=== PATIENT | male | born 1995 | race Two or more races ===

== ENCOUNTER 2023-10-01 14:33 | Emergency (ER) | payer SELFPAY ==
[~2023-10-01] VITALS: Ht 177.8 cm; Wt 79.3 kg
[~2023-10-01 14:33] MED LIST: AZIT-43
[2023-10-01 16:40] VITALS: BP 121/68; PULSE 100; RESP 17; TEMP 98.3; O2SAT 97
[2023-10-01] MEDS: HYDROcodone-ACET 10/325MG TAB PO ONE (16:47)
[2023-10-01] MEDS: KETOROLAC TROMETH 60MG/2ML VIAL IM ONE (16:47)
[2023-10-01] MEDS ORDERED: IBUP-1455 PO (16:53)
[2023-10-01] MEDS ORDERED: HYDR-4902 PO (16:53)
== END 2023-10-01 17:13 | disposition home or self-care (01) ==
LOC: ER 14:33
DX: S39.012A Strain of muscle, fascia and tendon of lower back, initial encounter (principal); Z88.1 Allergy status to other antibiotic agents; X58.XXXA Exposure to other specified factors, initial encounter; Y93.89 Activity, other specified; Y92.89 Other specified places as the place of occurrence of the external cause; Y99.8 Other external cause status
CPT/HCPCS: 72100; 96372; 99283; J1885